=== PATIENT | female | born 1985 | race Caucasian/White ===

== ENCOUNTER 2017-02-04 23:34 | Emergency (ER) | payer MEDICAID ==
[2011-06-10 12:23] VITALS: BMI 40.3
[2017-02-05 00:33] LABS: BASOPHILS 0.2 % (0-2); EOSINOPHILS 3.7 % (0-7); HEMATOCRIT 40.4 % (36.0-48.0); IMMATURE GRANULOCYTES 0.2 % (0-5); LYMPHOCYTES 42.4 % (15-50); MCH 28.5 pg (26.0-34.0); MCHC 32.2 g/dL (31.0-37.0); MCV 88.6 fL (80.0-100.0); MEAN PLATELET VOLUME 11.9 fL (7.4-10.4); NEUTROPHILS 45.5 % (40-80); PLATELET COUNT 247 10x3/uL (130-400); RBC 4.56 10x6/uL (4.00-5.40); RDW 13.2 % (11.5-14.5)
[2017-02-05 00:53] LABS: ALBUMIN 3.5 g/dL (3.4-5.0); ALKALINE PHOSPHATASE 76 U/L (46-116); ALT (SGPT) 70 U/L (10-68); CALC OSMOLALITY 274 mosm/kg (275-300); CALCIUM 8.7 mg/dL (8.5-10.1); CARBON DIOXIDE 24.4 mmol/L (21.0-32.0); CHLORIDE - SERUM 103 mmol/L (98-107); CREATININE - SERUM 0.9 mg/dL (0.6-1.3); GLUCOSE 102 mg/dL (74-106); POTASSIUM - SERUM 4.6 mmol/L (3.5-5.1); PROTEIN - SERUM 7.1 g/dL (6.4-8.2); SODIUM 138 mmol/L (136-145); UREA NITROGEN 9 mg/dL (7-18); eGFR NON AFRICAN AMERICAN 78 mL/min (90-120)
== END 2017-02-05 03:05 | disposition home or self-care (01) ==
LOC: D.ER 23:34
PROVIDERS: Family Medicine
DX: R10.9 Unspecified abdominal pain (principal); K59.00 Constipation, unspecified; F98.8 Other specified behavioral and emotional disorders with onset usually occurring in childhood and adolescence; K21.9 Gastro-esophageal reflux disease without esophagitis; F41.0 Panic disorder [episodic paroxysmal anxiety]

== ENCOUNTER 2017-08-25 11:46 | Emergency (ER) | payer MEDICAID ==
[2011-06-10 12:23] VITALS: BMI 40.3
[2017-08-25 12:35] LABS: BASOPHILS 0.4 % (0-2); EOSINOPHILS 5.5 % (0-7); HEMATOCRIT 38.4 % (36.0-48.0); HEMOGLOBIN 12.6 g/dL (12-16); IMMATURE GRANULOCYTES 0.2 % (0-5); LYMPHOCYTES 38.1 % (15-50); MCH 28.9 pg (26.0-34.0); MCHC 32.8 g/dL (31.0-37.0); MCV 88.1 fL (80.0-100.0); MEAN PLATELET VOLUME 10.6 fL (7.4-10.4); MONOCYTES 7.8 % (2-11); PLATELET COUNT 211 10x3/uL (130-400); RBC 4.36 10x6/uL (4.00-5.40); WBC 5.3 10x3/uL (4.8-10.8)
[2017-08-25 12:55] LABS: APPEARANCE HAZY (CLEAR); BILIRUBIN NEGATIVE (NEGATIVE); COLOR DK YELLOW (YELLOW); GLUCOSE NEGATIVE (NEGATIVE); KETONE NEGATIVE (NEGATIVE); NITRITE NEGATIVE (NEGATIVE); SPECIFIC GRAVITY 1.025 (1.005-1.020); UROBILINOGEN NORMAL (NORMAL)
[2017-08-25 12:56] LABS: BACTERIA MODERATE /hpf (NONE SEEN); GRANULAR CAST OCC /lpf (NONE SEEN); MUCUS <1+ /lpf (NONE SEEN); PROTEIN TRACE mg/dL (NEGATIVE); RED CELLS - URINE OCC /hpf (0-5); WHITE CELLS - URINE 0-5 /hpf (0-5)
[2017-08-25 13:09] LABS: ALBUMIN 3.8 g/dL (3.4-5.0); ANION GAP 12.3 mmol/L (8-16); BILIRUBIN - TOTAL 0.35 mg/dL (0.2-1.3); CALCIUM 8.7 mg/dL (8.5-10.1); CARBON DIOXIDE 26.8 mmol/L (21.0-32.0); POTASSIUM - SERUM 4.1 mmol/L (3.5-5.1); PROTEIN - SERUM 6.9 g/dL (6.4-8.2)
== END 2017-08-25 15:45 | disposition home or self-care (01) ==
LOC: D.ER 11:46
PROVIDERS: Emergency Medicine
DX: K59.00 Constipation, unspecified (principal); F98.8 Other specified behavioral and emotional disorders with onset usually occurring in childhood and adolescence; K21.9 Gastro-esophageal reflux disease without esophagitis

== ENCOUNTER 2018-06-15 11:40 | Emergency (ER) | payer MEDICAID ==
[~2018-06-15] VITALS: Ht 157.5 cm; Wt 117.3 kg
[2018-06-15 11:43] VITALS: Ht 157.5 cm; Wt 117.3 kg
[2018-06-15 17:14] VITALS: BP 96/054
== END 2018-06-15 17:16 | disposition home or self-care (01) ==
LOC: D.ER 11:40
DX: J02.9 Acute pharyngitis, unspecified (principal)

== ENCOUNTER 2019-01-16 14:23 | Emergency (ER) | payer MEDICAID ==
[~2019-01-16] VITALS: Ht 157.5 cm; Wt 117.3 kg
[2019-01-16 14:29] VITALS: Ht 157.5 cm; Wt 117.3 kg
[2019-01-16] MEDS ORDERED: PROPRANOLOL HCL20 MG PO (14:30)
[2019-01-16] MEDS ORDERED: KLONOPIN0.5 MG PO (14:31)
[2019-01-16] MEDS ORDERED: OMEPRAZOLE20 M1 PO (14:31)
[2019-01-16 15:00] LABS: BASOPHILS 0.4 % (0-2); EOSINOPHILS 1.8 % (0-7); HEMATOCRIT 33.5 % (36.0-48.0); HEMOGLOBIN 11.4 g/dL (12-16); IMMATURE GRANULOCYTES 0.2 % (0-5); LYMPHOCYTES 41.1 % (15-50); MCH 28.6 pg (26.0-34.0); MEAN PLATELET VOLUME 10.2 fL (7.4-10.4); MONOCYTES 6.7 % (2-11); NEUTROPHILS 49.8 % (40-80); PLATELET COUNT 223 10x3/uL (130-400); RBC 3.99 10x6/uL (4.00-5.40); RDW 13.3 % (11.5-14.5); WBC 5.5 10x3/uL (4.8-10.8)
[2019-01-16 15:08] LABS: APPEARANCE CLEAR (CLEAR); BILIRUBIN NEGATIVE (NEGATIVE); COLOR YELLOW (YELLOW); GLUCOSE NEGATIVE (NEGATIVE); KETONE NEGATIVE (NEGATIVE); NITRITE NEGATIVE (NEGATIVE); PROTEIN NEGATIVE (NEGATIVE); SPECIFIC GRAVITY 1.025 (1.005-1.020); UROBILINOGEN NORMAL (NORMAL)
[2019-01-16 15:21] LABS: ALBUMIN 3.8 g/dL (3.4-5.0); ANION GAP 13.5 mmol/L (8-16); BILIRUBIN - TOTAL 0.26 mg/dL (0.2-1.3); CALCIUM 9.1 mg/dL (8.5-10.1); CARBON DIOXIDE 25.9 mmol/L (21.0-32.0); POTASSIUM - SERUM 4.4 mmol/L (3.5-5.1); PROTEIN - SERUM 7.2 g/dL (6.4-8.2)
[2019-01-16 17:01] VITALS: BP 117/86
[2019-01-16] MEDS ORDERED: IBUPROFEN800 MG PO (17:32)
[2019-01-16] MEDS ORDERED: LEVSIN/ANASP0.125 MG PO (17:32)
[2019-01-16] MEDS ORDERED: ACETAMINOPHEN500 M1 PO (17:32)
[2019-01-16] MEDS ORDERED: CYCLOBENZAPRINE10 MG PO (17:32)
[2019-01-16] MEDS ORDERED: GOLYTELY SOLU4000 ML PO (17:32)
== END 2019-01-16 18:02 | disposition home or self-care (01) ==
LOC: D.ER 14:23
PROVIDERS: Family Medicine
DX: R10.32 Left lower quadrant pain (principal); K59.00 Constipation, unspecified

== ENCOUNTER → 2019-01-29 12:05 | Outpatient (CLI) | payer MEDICAID ==
[2019-01-16 14:29] VITALS: BMI 47.3
--- NOTE | ~2019-01-29 | ST ---
PATIENT:IRIS BLANK MEDICAL RECORD: [id number] SEX: F LOCATION:[facility] ORDER #: ADMISSION DATE: 01/29/19 AGE OF PATIENT: 33 REFERRING PHYSICIAN: INTERPRETING PHYSICIAN: BAILEY CAO MD DATE OF SERVICE: 01/29/2019 Nuclear Stress Test PROCEDURE: The patient was exercised on standard Lexiscan protocol with 33 mCi of sestamibi injected at peak stress, 11 mCi used previously for rest images. FINDINGS: Gated SPECT reveals preserved ejection fraction at 67% with good wall motion and thickening and brightening throughout all segments. SPECT imaging Cardiolite was used as myocardial fusion agent. There is homogeneous uptake throughout all segments at rest and stress with no evidence of inducible ischemia or previous infarction. OVERALL IMPRESSION: 1. This is a normal nuclear stress test with no evidence of inducible ischemia or previous infarction. 2. Gated SPECT reveals a preserved ejection fraction at 67%. In this patient with ongoing symptomatology, the current scan does not suggest the presence of hemodynamically significant coronary artery disease. Evaluate noncardiac etiology of chest pain. TRANSINT:[id number] Voice Confirmation ID: [id number] DOCUMENT ID: [id number] BAILEY CAO MD CC: ANDIE RICHARDS MD [id number] DICTATION DATE: 01/29/19 1655 [employer] SUPERVISOR: 01/30/19 0500 DEP CLI 01/29/19 [facility] [address] [place] [address]
[~2019-01-29 12:05] MED LIST: ACETAMINOPHEN500 M1 PO; CYCLOBENZAPRINE10 MG PO; GOLYTELY SOLU4000 ML PO; IBUPROFEN800 MG PO; KLONOPIN0.5 MG PO; LEVSIN/ANASP0.125 MG PO; OMEPRAZOLE20 M1 PO; PROPRANOLOL HCL20 MG PO
== END | disposition home or self-care (01) ==
LOC: D.HCCARDIO 10:00
PROVIDERS: ATTEND Internal Medicine Interventional Cardiology
DX: R07.9 Chest pain, unspecified (principal)

== ENCOUNTER 2019-02-05 06:50 | Day surgery (SDC) | payer MEDICAID ==
[2019-02-02 11:12] LABS: ANION GAP 10.3 mmol/L (8-16); CALCIUM 9.1 mg/dL (8.5-10.1); CARBON DIOXIDE 29.3 mmol/L (21.0-32.0); POTASSIUM - SERUM 3.6 mmol/L (3.5-5.1)
[2019-02-02 11:13] LABS: BASOPHILS 0.3 % (0-2); EOSINOPHILS 1.5 % (0-7); HEMATOCRIT 34.9 % (36.0-48.0); HEMOGLOBIN 11.9 g/dL (12-16); LYMPHOCYTES 31.2 % (15-50); MCH 28.6 pg (26.0-34.0); MCHC 34.1 g/dL (31.0-37.0); MCV 83.9 fL (80.0-100.0); MEAN PLATELET VOLUME 10.2 fL (7.4-10.4); MONOCYTES 7.5 % (2-11); NEUTROPHILS 59.5 % (40-80); PLATELET COUNT 227 10x3/uL (130-400); RBC 4.16 10x6/uL (4.00-5.40); RDW 12.8 % (11.5-14.5); WBC 5.8 10x3/uL (4.8-10.8)
[~2019-02-05] VITALS: Ht 154.9 cm; Wt 121.6 kg
[2019-02-05] MEDS ORDERED: VISTARIL50 MG PO (07:08)
[2019-02-05 07:32] VITALS: BP 126/75; Ht 154.9 cm; Wt 121.6 kg
--- NOTE | 2019-02-05 11:40 | NUR ---
RECIEVED A TRAY FULL LIQ
--- NOTE | 2019-02-05 18:47 | NUR ---
12NOON MEDICATED FOR PAIN 1220 IV REMOVED TOLERATED FULL LIQ TRAY WELL 1250 D/C HOME WITH INSTRUCTIONS
--- NOTE | 2019-02-12 09:40 | OP ---
PATIENT NAME: IRIS BLANK MEDICAL RECORD: [id number] :86 LOCATION:D.[facility] ADMISSION DATE: SURGEON: DANA DAVENPORT MD DATE OF OPERATION: 02/05/2019 PREOPERATIVE DIAGNOSIS: Chronic pelvic pain, left. POSTOPERATIVE DIAGNOSES: 1. Chronic pelvic pain, left. 2. Pelvic adhesions. PROCEDURE PERFORMED: 1. Diagnostic laparoscopy. 2. Lysis of adhesions. 3. Left salpingo-oophorectomy. 4. Right salpingectomy. SURGEON: Dana Davenport MD SECURITY SCREENER: TRES Williamson. ANESTHESIOLOGIST: Dr. Poe ANESTHESIA: General. FINDINGS: Uterus is surgically absent. There are adhesions of the ovary and tube to the left pelvic sidewall. Right ovary and tube are unremarkable. No active endometriosis visualized. What was visualized of the abdominal anatomy was also unremarkable. SPECIMEN REMOVED: Right and left tube with left ovary. SPECIMEN DISPOSITION: All specimens to pathology. ESTIMATED BLOOD LOSS: Minimal. FLUIDS: 1300 cc lactated Ringer's. URINE OUTPUT: Quantity sufficient cath prior to this procedure. COMPLICATIONS: None. DRAINS: None. INDICATIONS: The patient is a 33-year-old female status post hysterectomy. The patient has had longstanding pelvic pain, left greater than right. The patient was consented for bilateral salpingectomy with the left oophorectomy for chronic pain. DESCRIPTION OF PROCEDURE: After informed consent was assured, the patient was taken to the operating room where anesthetic was obtained. The patient was now prepped and draped after having her bladder emptied. Incision was made at the umbilicus to accommodate a 5-mm trocar, which was inserted without difficulty and pneumoperitoneum developed. Accessory trocars were now placed in the midline in the right lower quadrant. The midline port is a 12-mm port. The OPERATIVE REPORT [id number] IRIS BLANK right lower quadrant port is a 5-mm port. Through the 5-mm port, a grasper was inserted and the left tube and ovary were elevated. The ovary and tube were adhesed to the pelvic sidewall. Using a Thunderbeat coagulation cutter, the adhesions were taken down and the ovary and tube freed. The infundibulopelvic ligament was now compressed, coagulated, and . This was performed after desiccating 3 overlapping areas with the Thunderbeat. Once the ovary and tubes removed, it was placed into an Endobag and this Endobag was removed by slightly enlarging the fascial incision made by the 12-mm trocar. The right tube was now addressed. With the right tube elevated from the midline, the Thunderbeat was inserted through the right lower quadrant port and the tube removed from its attachments to the adnexa. This was removed through the 12 mm port in the midline. The trocars were removed under direct visualization as the pneumoperitoneum was released. Vicryl UR-6 was used to reapproximate the fascia. Subcuticular stitch with chromic was now performed to close all trocar sites. Sponge, lap, needle counts were correct times 2. The patient was awakened and went to the recovery room in stable condition. TRANSINT:[id number] Voice Confirmation ID: [id number] DOCUMENT ID: [id number] DANA DAVENPORT MD at 0940 CC: [id number] DICTATION DATE: 02/05/19 1032 GROUP INSURANCE SPECIAL AGENT: 02/05/19 1058 [facility] 02/05/19 [facility] [address] [place] [address]
== END 2019-02-05 12:50 | disposition home or self-care (01) ==
LOC: D.OPS 06:50 → D.PAN 11:45 → D.OPS 12:50
PROVIDERS: ATTEND Obstetrics & Gynecology
DX: N73.6 Female pelvic peritoneal adhesions (postinfective) (principal); R10.2 Pelvic and perineal pain; G89.29 Other chronic pain; Z01.812 Encounter for preprocedural laboratory examination

== ENCOUNTER 2019-06-19 16:50 | Emergency (ER) | payer MEDICAID ==
[~2019-06-19] VITALS: Ht 154.9 cm; Wt 117.3 kg
[~2019-06-19 16:50] MED LIST changes: +VISTARIL50 MG PO
[2019-06-19 16:56] VITALS: Ht 154.9 cm; Wt 117.3 kg
[2019-06-19 17:24] LABS: BASOPHILS 0.2 % (0-2); EOSINOPHILS 2.6 % (0-7); HEMATOCRIT 35.9 % (36.0-48.0); HEMOGLOBIN 11.3 g/dL (12-16); IMMATURE GRANULOCYTES 0.2 % (0-5); LYMPHOCYTES 43.7 % (15-50); MCHC 31.5 g/dL (31.0-37.0); MCV 92.3 fL (80.0-100.0); MEAN PLATELET VOLUME 10.9 fL (7.4-10.4); MONOCYTES 7.4 % (2-11); NEUTROPHILS 45.9 % (40-80); PLATELET COUNT 219 10x3/uL (130-400); RBC 3.89 10x6/uL (4.00-5.40); RDW 13.5 % (11.5-14.5); WBC 6.2 10x3/uL (4.8-10.8)
[2019-06-19 17:32] LABS: COLOR YELLOW (YELLOW)
[2019-06-19 17:33] LABS: APPEARANCE HAZY (CLEAR); BILIRUBIN NEGATIVE (NEGATIVE); GLUCOSE NEGATIVE (NEGATIVE); KETONE NEGATIVE (NEGATIVE); NITRITE NEGATIVE (NEGATIVE); PROTEIN NEGATIVE (NEGATIVE); SPECIFIC GRAVITY 1.025 (1.005-1.020); UROBILINOGEN NORMAL (NORMAL)
[2019-06-19 17:34] LABS: BACTERIA FEW /hpf (NEGATIVE); EPITHELIAL CELLS 0-5 /hpf (0-5); WHITE CELLS - URINE 0-5 /hpf (NEGATIVE)
[2019-06-19 17:36] LABS: CALC OSMOLALITY 279 mosm/kg (275-300); CALCIUM 8.8 mg/dL (8.5-10.1); CARBON DIOXIDE 29.2 mmol/L (21.0-32.0); CHLORIDE - SERUM 105 mmol/L (98-107); CREATININE - SERUM 0.8 mg/dL (0.6-1.3); GLUCOSE 99 mg/dL (74-106); POTASSIUM - SERUM 3.7 mmol/L (3.5-5.1); SODIUM 141 mmol/L (136-145); UREA NITROGEN 11 mg/dL (7-18); eGFR NON AFRICAN AMERICAN 88 mL/min (90-120)
[2019-06-19 17:46] LABS: ALBUMIN 3.6 g/dL (3.4-5.0); ALKALINE PHOSPHATASE 82 U/L (46-116); ALT (SGPT) 51 U/L (10-68); AMYLASE - SERUM 24 U/L (25-115); BILIRUBIN - TOTAL 0.34 mg/dL (0.2-1.3); LIPASE 65 U/L (73-393); PROTEIN - SERUM 6.7 g/dL (6.4-8.2); TROPONIN-I < 0.017 ng/mL (0.000-0.060)
[2019-06-19] MEDS ORDERED: BENTYL 20 MG TA20 MG PO (19:03)
[2019-06-19] MEDS ORDERED: ZOFRAN ODT4 MG/UDTAB PO (19:03)
[2019-06-19 19:19] LABS: HCG URINE NEGATIVE (NEGATIVE)
[2019-06-19] MEDS ORDERED: CHRONULAC30 ML PO (20:03)
[2019-06-19 20:12] VITALS: BP 105/63
== END 2019-06-19 20:11 | disposition home or self-care (01) ==
LOC: D.ER 16:50
PROVIDERS: Family Medicine
DX: K59.00 Constipation, unspecified (principal); R10.84 Generalized abdominal pain

== ENCOUNTER 2020-03-21 10:33 | Emergency (ER) | payer MEDICAID ==
[~2020-03-21] VITALS: Ht 154.9 cm; Wt 112.7 kg
[~2020-03-21 10:33] MED LIST changes: +BENTYL 20 MG TA20 MG PO; +CHRONULAC30 ML PO; +ZOFRAN ODT4 MG/UDTAB PO
[2020-03-21 10:37] VITALS: Ht 154.9 cm; Wt 112.7 kg
[2020-03-21 11:23] LABS: BASOPHILS 0.1 % (0-2); EOSINOPHILS 0.6 % (0-7); HEMATOCRIT 38.3 % (36.0-48.0); HEMOGLOBIN 12.5 g/dL (12-16); IMMATURE GRANULOCYTES 0.1 % (0-5); LYMPHOCYTES 32.1 % (15-50); MCH 29.2 pg (26.0-34.0); MCHC 32.6 g/dL (31.0-37.0); MCV 89.5 fL (80.0-100.0); MONOCYTES 7.3 % (2-11); NEUTROPHILS 59.8 % (40-80); PLATELET COUNT 226 10x3/uL (130-400); RBC 4.28 10x6/uL (4.00-5.40); RDW 12.9 % (11.5-14.5); WBC 6.7 10x3/uL (4.8-10.8)
[2020-03-21 11:35] LABS: CALC OSMOLALITY 276 mosm/kg (275-300); CALCIUM 8.9 mg/dL (8.5-10.1); CARBON DIOXIDE 26.1 mmol/L (21.0-32.0); CHLORIDE - SERUM 104 mmol/L (98-107); CREATININE - SERUM 0.9 mg/dL (0.6-1.3); GLUCOSE 100 mg/dL (74-106); POTASSIUM - SERUM 3.3 mmol/L (3.5-5.1); SODIUM 139 mmol/L (136-145); UREA NITROGEN 10 mg/dL (7-18); eGFR NON AFRICAN AMERICAN 76 mL/min (90-120)
[2020-03-21 11:45] LABS: ALBUMIN 4.1 g/dL (3.4-5.0); ALKALINE PHOSPHATASE 56 U/L (30-120); ALT (SGPT) 26 U/L (10-68); BILIRUBIN - TOTAL 0.63 mg/dL (0.2-1.3)
[2020-03-21 11:49] LABS: BILIRUBIN NEGATIVE (NEGATIVE); GLUCOSE NEGATIVE (NEGATIVE); KETONE NEGATIVE (NEGATIVE); NITRITE NEGATIVE (NEGATIVE); UROBILINOGEN NORMAL (NORMAL)
[2020-03-21 11:50] LABS: BACTERIA FEW /hpf (NEGATIVE); EPITHELIAL CELLS OCC /hpf (0-5); RED CELLS - URINE OCC /hpf (0-5); WHITE CELLS - URINE RARE /hpf (NEGATIVE)
[2020-03-21 11:52] LABS: TROPONIN-I < 0.017 ng/mL (0.000-0.060)
[2020-03-21] MEDS ORDERED: HYDROCODON-ACE1 EAC7 PO (12:52)
[2020-03-21 13:03] VITALS: BP 123/80
== END 2020-03-21 13:05 | disposition home or self-care (01) ==
LOC: D.ER 10:33
PROVIDERS: Family Medicine
DX: R10.31 Right lower quadrant pain (principal)

== ENCOUNTER 2020-05-05 08:35 | Day surgery (SDC) | payer MEDICAID ==
[2020-05-02 12:44] LABS: BASOPHILS 0.4 % (0-2); EOSINOPHILS 0.8 % (0-7); HEMATOCRIT 36.6 % (36.0-48.0); HEMOGLOBIN 12.4 g/dL (12-16); IMMATURE GRANULOCYTES 0.2 % (0-5); LYMPHOCYTES 40.4 % (15-50); MCH 30.1 pg (26.0-34.0); MCHC 33.9 g/dL (31.0-37.0); MCV 88.8 fL (80.0-100.0); MEAN PLATELET VOLUME 11.4 fL (7.4-10.4); MONOCYTES 6.6 % (2-11); NEUTROPHILS 51.6 % (40-80); PLATELET COUNT 232 10x3/uL (130-400); RBC 4.12 10x6/uL (4.00-5.40); RDW 12.8 % (11.5-14.5)
[~2020-05-05] VITALS: Ht 154.9 cm; Wt 112.5 kg
--- NOTE | ~2020-05-05 | OP ---
PATIENT NAME: IRIS BLANK MEDICAL RECORD: [id number] :87 LOCATION:D[facility] ADMISSION DATE: SURGEON: DANA DAVENPORT MD DATE OF OPERATION: 05/05/2020 PREOPERATIVE DIAGNOSIS: Chronic pelvic pain. POSTOPERATIVE DIAGNOSIS: Chronic pelvic pain. PROCEDURE: 1. Diagnostic laparoscopy. 2. Right salpingo-oophorectomy. SURGEON: Dana Davenport MD MIXED LIVESTOCK FARM WORKER: Dr. Coronado. ANESTHESIOLOGIST: Dr. Bass ANESTHETIC: General. FINDINGS: Right ovary is unremarkable. Portion of the right tube was adhered to the ovary. What was visualized of the abdominal anatomy was also unremarkable. SPECIMEN REMOVED: Right ovary and portion of tube. SPECIMEN DISPOSITION: Pathology. ESTIMATED BLOOD LOSS: Minimal. FLUIDS: 1 liter of lactated Ringer's. URINE OUTPUT: Quantity sufficient void prior to this procedure. COMPLICATIONS: None. DRAINS: None. INDICATIONS: The patient is a 34-year-old female with history of chronic pelvic pain. The patient has a chronic right-sided pain and on physical exam right adnexa is tender to palpation. The patient has been counseled on significance of oophorectomy. The patient understands all risks, benefits and wishes to proceed. DESCRIPTION OF PROCEDURE: After informed consent was assured, the patient was taken to the operating room where anesthetic was obtained. The patient was supine on the table and prepped and draped in the usual sterile fashion. An incision was made at the umbilicus to accommodate a 5-mm trocar. Accessory trocars were now placed in the right lower quadrant. The midline port was a 10-mm port. With a grasper inserted from the midline, the right tube and ovary were elevated. Using a Thunderbeat coagulation cutter infundibulopelvic ligament was identified, now compressed, coagulated, and . Prior to the separation of the ovary from the infundibulopelvic ligament, the right ureter has been identified and noted to vermiculate well below the area of OPERATIVE REPORT [id number] IRIS BLANK dissection. Dissection was carried on lateral to the right ovary to free it from attachment to the adnexa. Once this was complete, an Endopouch was placed into the pelvis and the ovary was now removed through the 10-mm port. The pelvis was irrigated, irrigant removed. Adequate hemostasis has been achieved. Pneumoperitoneum was released as the accessory trocars were removed. Primary trocar was now removed. All sites were closed with a subcuticular stitch and covered with Dermabond. Sponge, lap, needle counts were correct times 2. The patient was awakened and went to the recovery area in stable condition. TRANSINT:[id number] Voice Confirmation ID: [id number] DOCUMENT ID: [id number] DANA DAVENPORT MD CC: [id number] DICTATION DATE: 05/14/20811 TRUCK BODY BUILDER APPRENTICE: 05/14/20917 [facility] [place] 05/05/20 [id number] [place] [address]
[~2020-05-05 08:35] MED LIST changes: +HYDROCODON-ACE1 EAC7 PO; +KLONOPIN0.5 MG; +TYLENOL #4
[2020-05-05 09:29] LABS: HCG URINE NEGATIVE (NEGATIVE)
[2020-05-05 09:30] VITALS: BP 129/85; Ht 154.9 cm; Wt 112.5 kg
--- NOTE | 2020-05-05 15:15 | NUR ---
PATIENT AMBULATES TO BATHROOM AND VOIDS LARGE AMOUNT IN TOILET WITHOUT DIFFICULTY. LEFT HAND PIV DC'D WITH TIP INTACT. DISCHARGE INSTRUCTIONS REVIEWED WITH SPOUSE AND PATIENT, PATIENT DRESSING IN PERSONAL CLOTHING. 1531 DISCHARGED HOME VIA WHEELCHAIR TO PRIVATE VEHICLE
== END 2020-05-05 15:35 | disposition home or self-care (01) ==
LOC: D.OPS 08:35 → D.PAN 11:00 → D.OPS 11:00
PROVIDERS: ATTEND Obstetrics & Gynecology
DX: R10.2 Pelvic and perineal pain (principal)